=== PATIENT | male | born 1960 | race Caucasian/White ===

== ENCOUNTER 2019-07-17 11:55 | Inpatient (IN) | payer OTHER ==
[~2019-07-17] VITALS: Ht 182.9 cm; Wt 83.5 kg
[~2019-07-17 11:55] MED LIST: ASPIR 8181 MG PO; DULCOLAX STOOL100 M1 PO; DULOXETINE HCL20 MG PO; DULOXETINE HCL60 MG PO; FLOMAX0.4 MG PO; MOBIC15 MG PO; NEURONTIN100 MG PO; OMEPRAZOLE 20 M20 M1 PO; REQUIP XL2 MG PO; SIMVASTATIN20 MG PO; SINGULAIR 10 MG10 M1 PO
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
[2019-07-17 12:32] VITALS: BP 161/91
--- NOTE | 2019-07-17 18:45 | NUR ---
PT HAS BEEN IN ROOM SINCE ADMIT. PT ATE DINNER IN HIS ROOM. PT DENIES ANY PAIN A THIS TIME. PT TALKING ABOUT HIS DAYS OF DRIVING TRUCKS.
[2019-07-17 19:28] VITALS: BP 158/83
[2019-07-18 00:02] VITALS: BP 158/83
--- NOTE | 2019-07-18 06:13 | NUR ---
Assumed care on 07/17/19 @ 1900, lying in bed at start of shift. Denies SI, HI, AH, VH. HRRR, S1S2 noted. Lung sounds clear, ABD bowel sounds noted. Compliant with medications. Slept 8.5 hours.
[2019-07-18 08:00] VITALS: BP 150/84
--- NOTE | 2019-07-18 08:56 | NUR ---
0700 ASSUMED CARE OF PATIENT, PATIENT IN DAYROOM AT 0730 FOR BREAKFAST. MEDICATIONS GIVEN WHOLE. PATIENT BACK TO ROOM AT 0835. WILL CONTINUE TO OBSERVE
[2019-07-18] MEDS ORDERED: LIPITOR10 MG PO (11:46)
[2019-07-18] MEDS ORDERED: COZAAR 50 MG TA50 M1 PO (11:47)
[2019-07-18] MEDS ORDERED: SEROQUEL 50 MG50 MG PO (11:48)
[2019-07-18] MEDS ORDERED: OMERA CAPSULE1 EACH PO (11:50)
[2019-07-18 13:25] VITALS: BP 150/84
--- NOTE | 2019-07-18 13:58 | NUR ---
MICHAEL D/C note MICHAEL spoke with Dr. Mederos who said that he spoke with pt and he is not interested in staying longer or any outside treatment including substance abuse, and MICHAEL was asked to prepare discharge. MICHAEL and Dr. So contacted pt's niece Too and expressed the need for all firearms in the home to be locked up. She said she would relay this info to her mom, who is pt's sister and pt lives with, that this needs to be done before he returns. She said that she may bring the guns to her home instead. MICHAEL contacted pt's psych office [facility] and confirmed his psych appt on July [address] Bianchi @9:30am and then moved his counseling appt from August to July 22 @10:30 am. MICHAEL contacted [employer] and scheduled transportation for pt. Trip # [id number]
--- NOTE | 2019-07-18 16:35 | NUR ---
PATIENT VISITED WITH DR EARLIER TODAY AND ORDER FOR DC WAS RECIEVED. PATIENT PACED UP AND DOWN FLORES WAITING FOR TRANSPORTATION TO ARRIVE. AT 1630 PATIENT WAS D/C HOME VIA TRANSPORTATION. PATIENT AMB TO VEHICLE ACCOMPANIED BY STAFF TO VEHICLE. BELONGING GIVEN TO PATIENT ALONG WITH D/C INSTRUCTIONS.
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
== END 2019-07-18 16:30 | disposition home or self-care (01) | DRG 897 ==
LOC: SBH 11:55
PROVIDERS: ADMIT Psychiatry & Neurology Psychiatry
DX: F10.929 Alcohol use, unspecified with intoxication, unspecified (principal); R45.851 Suicidal ideations; F32.9 Major depressive disorder, single episode, unspecified; F41.9 Anxiety disorder, unspecified; J44.9 Chronic obstructive pulmonary disease, unspecified; G89.29 Other chronic pain; M54.9 Dorsalgia, unspecified; Z79.82 Long term (current) use of aspirin; Z79.899 Other long term (current) drug therapy
CPT/HCPCS: 10880